=== PATIENT | female | born 1995 | race Two or more races ===

== ENCOUNTER 2021-11-25 12:29 | Inpatient (IN) | payer OTHER ==
[~2021-11-25] VITALS: Ht 165.1 cm; Wt 1.8 kg
[2021-11-25] MEDS ORDERED: PRENATAL TABLE1 EAC1 PO (14:24)
[2021-11-25] MEDS ORDERED: LABETALOL 11 MG/1 ML PO (14:25)
[2021-11-25] MEDS ORDERED: LABETALOL HCL100 MG PO (14:26)
[2021-11-26] MEDS ORDERED: CONCEPT OB CAP1 EACH (15:29)
== END 2021-12-01 14:18 | disposition home or self-care (01) | DRG 786 ==
LOC: LDR 12:29 → O/R 11-28 12:18 → OB/GYN 11-28 14:18 → LDR 11-29 12:07 → OB/GYN 11-30 13:33
PROVIDERS: ADMIT Obstetrics & Gynecology; ATTEND Obstetrics & Gynecology
PROC: BY4FZZZ Ultrasonography of Third Trimester, Single Fetus (ICD-10-PCS; 2021-11-25)
PROC: 4A1HXCZ Monitoring of Products of Conception, Cardiac Rate, External Approach (ICD-10-PCS; 2021-11-28)
PROC: 10D00Z1 Extraction of Products of Conception, Low, Open Approach (ICD-10-PCS; principal; 2021-11-28 12:45)
DX: O14.13 Severe pre-eclampsia, third trimester (principal); O60.14X0 Preterm labor third trimester with preterm delivery third trimester, not applicable or unspecified; O41.03X0 Oligohydramnios, third trimester, not applicable or unspecified; O36.5930 Maternal care for other known or suspected poor fetal growth, third trimester, not applicable or unspecified; O36.8130 Decreased fetal movements, third trimester, not applicable or unspecified; Z3A.35 35 weeks gestation of pregnancy; Z37.0 Single live birth; Z20.822 Contact with and (suspected) exposure to COVID-19

== ENCOUNTER 2021-12-05 08:00 | Outpatient (CLI) | payer OTHER ==
[~2021-12-05 08:00] MED LIST: CONCEPT OB CAP1 EACH; LABETALOL 11 MG/1 ML PO; LABETALOL HCL100 MG PO; PRENATAL TABLE1 EAC1 PO
== END 2021-12-05 08:30 | disposition home or self-care (01) ==
LOC: PPH VACUNA 08:00
PROVIDERS: ATTEND Emergency Medicine Pediatric Emergency Medicine
DX: Z23 Encounter for immunization (principal)